=== PATIENT | female | born 1965 ===

== ENCOUNTER 2024-08-07 12:15 | Inpatient (IN) | payer OTHER ==
[~2024-08-07] VITALS: Ht 160 cm; Wt 77.6 kg
[2024-08-07 13:55] VITALS: BP 152/80
[2024-08-07] MEDS ORDERED: GRALISE600 MG (13:59)
[2024-08-07] MEDS ORDERED: ZESTRIL40 M1 (13:59)
[2024-08-07 16:49] LABS: RH POSITIVE
[2024-08-13] MEDS ORDERED: POVIDONE-IODINE 118 ML BOTT TOP ONE (11:15)
[2024-08-13] MEDS ORDERED: CEFAZOLIN SODIUM 1,000 MG VIAL IV ONE (11:15)
[2024-08-13] MEDS ORDERED: METRONIDAZOLE/SODIUM CHLORIDE 500 MG/100 ML PIGGYBACK IV ONE (11:15)
[2024-08-13] MEDS ORDERED: MORPHINE SULFATE 4 MG/ML CARTRIDGE IV PRN (12:15)
[2024-08-13] MEDS ORDERED: RINGERS SOLUTION,LACTATED 1,000 ML IV SCH (12:15)
[2024-08-13] MEDS ORDERED: MORPHINE SULFATE 4 MG/ML VIAL IV ONE ×2 (12:50→13:35)
[2024-08-13] MEDS ORDERED: KETOROLAC TROMETHAMINE 30 MG VIAL IV NR (13:00)
[2024-08-13] MEDS ORDERED: THROMBIN,HU/FIBRINOGEN/CALCIUM 4 ML SYRINGE TOP ONE (13:00)
[2024-08-13] MEDS ORDERED: ONDANSETRON HCL 2 MG/ML VIAL IV ONE (16:10)
[2024-08-13 16:21] LABS: HEMATOCRIT 33.4 % (36.0-45.00); HEMOGLOBIN 10.9 g/dL (12.0-15.00); MEAN CORPUSCULAR HGB CONC 32.6 g/dl (32.0-36.0); PLATELET COUNT 235 K/uL (150-450); RED BLOOD COUNT 3.52 M/uL (4.00-6.00)
[2024-08-13 16:36] VITALS: BP 152/80
[2024-08-13 16:37] VITALS: BP 152/87
[2024-08-13 16:59] LABS: ALBUMIN 3.3 gm/dL (3.4-5.0); CALCIUM 8.9 mg/dL (8.5-10.1); CREATININE SERUM 0.91 mg/dL (0.55-1.02); GFR 63.06; PHOSPHOROUS 3.2 mg/dL (2.5-4.9); POTASSIUM 4.99 mEq/L (3.5-5.1)
[2024-08-13] MEDS ORDERED: METOCLOPRAMIDE HCL 5 MG/ML VIAL IV SCH (17:00)
[2024-08-13] MEDS ORDERED: CEFAZOLIN SODIUM 1,000 MG VIAL IV SCH (17:00)
[2024-08-13] MEDS ORDERED: KETOROLAC TROMETHAMINE 30 MG VIAL IV SCH (18:00)
[2024-08-13] MEDS ORDERED: ACETAMINOPHEN 500 MG GEL..CAP PO SCH (18:00)
[2024-08-13 20:56] VITALS: BP 122/80
[2024-08-13] MEDS ORDERED: FAMOTIDINE/PF 20 MG/2 ML VIAL IV PUSH SCH (21:00)
[2024-08-13] MEDS ORDERED: SIMETHICONE 125 MG CAPSULE PO SCH (21:00)
[2024-08-13] MEDS ORDERED: DOCUSATE SODIUM 100MG CAP PO SCH (21:00)
[2024-08-13] MEDS ORDERED: GABAPENTIN 300 MG CAPSULE PO SCH (21:00)
[2024-08-14] VITALS: BP 107/76; O2SAT 98
[2024-08-14 02:08] LABS: HEMATOCRIT 29.7 % (36.0-45.00); HEMOGLOBIN 9.8 g/dL (12.0-15.00); MEAN CELL VOLUME 95.1 fL (80.00-100.00); MEAN CORPUSCULAR HEMOGLOBIN 31.3 pg (27.00-32.0); PLATELET COUNT 217 K/uL (150-450); RED BLOOD COUNT 3.13 M/uL (4.00-6.00)
[2024-08-14 02:56] LABS: ALBUMIN 2.9 gm/dL (3.4-5.0); CALCIUM 8.5 mg/dL (8.5-10.1); CREATININE SERUM 0.9 mg/dL (0.55-1.02); GFR 63.87; PHOSPHOROUS 3.8 mg/dL (2.5-4.9); POTASSIUM 5.09 mEq/L (3.5-5.1)
[2024-08-14 04:30] VITALS: BP 115/69
[2024-08-14] MEDS ORDERED: TRAMADOL HCL 50 MG TABLET PO PRN (07:45)
[2024-08-14 08:45] VITALS: BP 124/77; O2SAT 100
[2024-08-14] MEDS ORDERED: ENOXAPARIN SODIUM 40 MG/0.4 ML SYRINGE SUBCUTANEO SCH (09:00)
[2024-08-14 16:00] VITALS: BP 145/79
[2024-08-14 23:10] VITALS: BP 117/74; O2SAT 97
[2024-08-15 08:14] VITALS: BP 112/73; O2SAT 95
== END 2024-08-15 11:08 | disposition home or self-care (01) | DRG 741 ==
LOC: O/R 08-13 06:31 → OB/GYN 08-13 06:31 → SURG 08-13 12:15 → OB/GYN 08-13 15:44 → SURG 08-13 20:45 → OB/GYN 08-15 11:08
PROVIDERS: Obstetrics & Gynecology; ADMIT Obstetrics & Gynecology Gynecologic Oncology; ATTEND Obstetrics & Gynecology Gynecologic Oncology
PROC: 0UT70ZZ Resection of Bilateral Fallopian Tubes, Open Approach (ICD-10-PCS; 2024-08-13)
PROC: 0UT20ZZ Resection of Bilateral Ovaries, Open Approach (ICD-10-PCS; 2024-08-13)
PROC: 07BC0ZZ Excision of Pelvis Lymphatic, Open Approach (ICD-10-PCS; 2024-08-13)
PROC: 0UT90ZZ Resection of Uterus, Open Approach (ICD-10-PCS; principal; 2024-08-13 20:45)
DX: C54.1 Malignant neoplasm of endometrium (principal); D25.1 Intramural leiomyoma of uterus; D25.2 Subserosal leiomyoma of uterus